=== PATIENT | male | born 1980 | race Caucasian/White ===

== ENCOUNTER 2020-07-21 15:49 | Outpatient (CLI) | payer OTHER, SELFPAY ==
--- NOTE | 2020-07-25 12:39 | WPDHOLTEREM ---
Holter/Event Monitor Holter/Event Monitor Date of procedure: 07/21/20 Procedure Type: 48 hour holter monitor Indications: Palpitations Conclusion: 1. 48 hour holter monitor on 07/21/20. 2. Underlying rhythm is sinus rhythm. HR range 46-121 bpm; average HR 74 bpm. 3. There are 214 premature supraventricular complexes. No supraventricular tachycardia. 4. There are 61 premature ventricular complexes. No ventricular tachycardia. 5. No sinoatrial or atrioventricular blocks. No significant pauses greater than 2 seconds. 6. Patient reports symptoms of palpitations which demonstrate sinus rhythm, HR range 60-94 bpm.
== END 2020-07-21 15:50 | disposition home or self-care (01) ==
LOC: ANHCARD 15:51
PROVIDERS: PCP Internal Medicine; Visit Provider Internal Medicine
DX: R00.2 Palpitations (principal)
CPT/HCPCS: 93225; 93226